=== PATIENT | female | born 1990 | race Caucasian/White ===

== ENCOUNTER 2017-03-17 22:26 | Emergency (ER) | payer SELFPAY ==
--- NOTE | 2017-03-17 22:55 | NUR ---
PATIENT LEFT WITHOUT BEING SEEN BY DR. FOLEY. NO FURTHER CARE PROVIDED FOR PATIENT.
== END 2017-03-17 22:55 | disposition left against medical advice (07) ==
LOC: MED 22:26
DX: Z53.21 Procedure and treatment not carried out due to patient leaving prior to being seen by health care provider (principal)